=== PATIENT | female | born 1985 | race Caucasian/White ===

== ENCOUNTER 2016-06-04 18:02 | Emergency (ER) | payer SELFPAY ==
[~2016-06-04] VITALS: Ht 175.3 cm; Wt 61.5 kg
[2016-06-04 18:04] VITALS: BP 163/104; PULSE 118; RESP 15; TEMP 99.4; O2SAT 98
--- NOTE | 2016-06-04 18:37 | PD ---
HPI . Urinary symptoms Chief Complaint: Complaint Time Seen by Provider: 18:23 Travel History International Travel<30 days: No Contact w/Intl Traveler<30days: No Traveled to known affect area: No History of Present Illness HPI Patient presents with about a 2 day history of dysuria, frequency, urgency. She developed vomiting today. She said some subjective fevers. She states that her symptoms have been getting progressively worse. She states that AZO has provided no relief. She was seen at an urgent care facility earlier today and given Zofran minimal relief of her nausea. She has not noted any exacerbating symptoms. [facility] Past Medical History ?: Not LMP: 05/31/16 Social History Tobacco Use: No Allergies-Medications (Allergen,Severity, Reaction): Coded Allergies: No Known Allergies (Unverified , 06/04/16) Reported Meds & Prescriptions Reported Meds & Active Scripts Active No Active Prescriptions or Reported Medications Review of Systems Except as stated in HPI: all other systems reviewed are Neg General / Constitutional: Positive: Fever, Chills Gastrointestinal: Positive: Nausea, Vomiting Genitourinary: Positive: Urgency, Frequency, Dysuria, Flank Pain Physical Exam Narrative GENERAL: Awake and alert and in no acute distress. Oral temperature is 99.4. SKIN: Warm and dry. HEAD: Atraumatic. Normocephalic. EYES: Pupils equal and round. Extraocular movements are intact. ENT: No nasal bleeding or discharge. Mucous membranes pink and moist. NECK: Trachea midline. Neck is supple. CARDIOVASCULAR: Rapid rate, regular rhythm. RESPIRATORY: No accessory muscle use. Lungs are clear with full air movement throughout. GASTROINTESTINAL: Abdomen soft, non-tender, nondistended. Abdomen is soft and nontender throughout. She does have some right CVA tenderness. MUSCULOSKELETAL: No obvious deformities. No edema. NEUROLOGICAL: Awake and alert. No obvious cranial nerve deficits. Motor grossly within normal limits. Normal speech. PSYCHIATRIC: Appropriate mood and affect; insight and judgment normal. Data Data Last Documented VS Vital Signs Date Time Temp Pulse Resp B/P Pulse Ox O2 Delivery O2 Flow Rate FiO2 06/04/16 18:04 99.4 118 15 163/104 98 Orders Complete Blood Count With Diff (06/04/16 18:30) Basic Metabolic Panel (Bmp) (06/04/16 18:30) Urinalysis - C+S If Indicated (06/04/16 18:30) Ceftriaxone Inj (Rocephin Inj) (06/04/16 18:30) Sodium Chlor 0.9% 1000 Ml Inj (Ns 1000 M (06/04/16 18:30) Ed Urine Pregnancytest Poc (06/04/16 18:30) Ct Abd/Pel W/O Iv Contrast (06/04/16 18:30) Morphine Inj (Morphine Inj) (06/04/16 18:30) Prochlorperazine Inj (Compazine Inj) (06/04/16 18:30) Diphenhydramine Inj (Benadryl Inj) (06/04/16 18:30) Urine Culture (06/04/16 18:50) Labs Laboratory Tests Test 06/04/16 18:50 White Blood Count 10.5 TH/MM3 Red Blood Count 3.95 MIL/MM3 Hemoglobin 13.4 GM/DL Hematocrit 39.8 % Mean Corpuscular Volume 100.8 FL Mean Corpuscular Hemoglobin 33.9 PG Mean Corpuscular Hemoglobin 33.6 % Concent Red Cell Distribution Width 12.3 % Platelet Count 261 TH/MM3 Mean Platelet Volume 7.7 FL Neutrophils (%) (Auto) 88.8 % Lymphocytes (%) (Auto) 6.0 % Monocytes (%) (Auto) 4.3 % Eosinophils (%) (Auto) 0.1 % Basophils (%) (Auto) 0.8 % Neutrophils # (Auto) 9.3 TH/MM3 Lymphocytes # (Auto) 0.6 TH/MM3 Monocytes # (Auto) 0.4 TH/MM3 Eosinophils # (Auto) 0.0 TH/MM3 Basophils # (Auto) 0.1 TH/MM3 CBC Comment DIFF FINAL Differential Comment Urine Color DARK-YELLOW Urine Turbidity HAZY Urine pH 6.0 Urine Specific [place] 1.028 Urine Protein 300 mg/dL Urine Glucose (UA) NEG mg/dL Urine Ketones 150 mg/dL Urine Occult Blood MOD Urine Nitrite POS Urine Bilirubin NEG Urine Urobilinogen 2.0 MG/DL Urine Leukocyte Esterase SMALL Urine RBC 19 /hpf Urine WBC 37 /hpf Urine Squamous Epithelial 2 /hpf Cells Urine Mucus FEW /lpf Microscopic Urinalysis Comment CULTURE INDICATED Sodium Level 134 MEQ/L Potassium Level 3.6 MEQ/L Chloride Level 95 MEQ/L Carbon Dioxide Level 25.0 MEQ/L Anion Gap 14 MEQ/L Blood Urea Nitrogen 9 MG/DL Creatinine 0.65 MG/DL Estimat Glomerular Filtration 106 ML/MIN Rate Random Glucose 91 MG/DL Calcium Level 9.1 MG/DL [facility] Medical Decision Making Medical Screen Exam Complete: Yes Emergency Medical Condition: Yes Differential Diagnosis Differential diagnosis of flank pain includes but is not limited to kidney stone , pyelonephritis, musculoskeletal pain, PE Narrative Course Patient presents with urinary tract symptoms, nausea and vomiting and subjective fever. She will be evaluated for possible pyelonephritis. CBC & BMP Diagram 06/04/16 18:50 UA shows positive nitrite, positive leukocyte esterase, [address] CONCLUSION: 1. No acute findings. Specifically no renal calculi or evidence for obstructive uropathy. Gallbladder sludge present. Diagnosis Primary Impression: Vomiting Qualified Code: R11.2 - Non-intractable vomiting with nausea, unspecified vomiting type Additional Impression: Urinary tract infection Qualified Code: N30.00 - Acute cystitis without hematuria Patient Instructions: Acute Nausea and Vomiting (DC), General Instructions, Urinary Tract Infection in Women (DC) Med/Other Pt SpecificInfo: Prescription(s) given Scripts Ondansetron Odt (Zofran Odt)8 Mg Tab8 Mg SL Q8H PRN (NAUSEA OR VOMITING) #10 TAB Ref 0 Prov:Yasmin Rodríguez MD 06/04/16 Sulfamethoxazole-Trimethoprim (Bactrim DS)800-160 Mg Tab1 Tab PO BID #14 TAB Ref 0 Prov:Yasmin Rodríguez MD 06/04/16 Disposition: 01 DISCHARGE HOME Condition: Stable Yasmin Rodríguez MD Jun 04, 2016 18:37
[2016-06-04] MEDS: SODIUM CHLOR 0.9% 1000 ML INJ 1,000 ML IV ONE (19:09)
[2016-06-04] MEDS: MORPHINE SULFATE 4 MG/ML INJ IV PUSH ONE (19:10)
[2016-06-04] MEDS: cefTRIAXone INJ 1,000 MG in SODIUM CHLORIDE 0.9% INJ 100 ML IV ONE (19:11)
[2016-06-04] MEDS: PROCHLORPERAZINE INJ 10 MG/2 ML VIAL IV PUSH ONE (19:11)
[2016-06-04 19:13] LABS: AUTOMATED NEUTROPHIL # 9.3 TH/MM3 (1.8-7.7); BASOPHIL # 0.1 TH/MM3 (0-0.2); BASOPHIL % 0.8 % (0.0-2.0); EOSINOPHIL % 0.1 % (0.0-4.0); HEMATOCRIT 39.8 % (35.0-46.0); HEMO FLAGS DIFF FINAL; LYMPHOCYTE # 0.6 TH/MM3 (1.0-4.8); MEAN CELL VOLUME 100.8 FL (80.0-100.0); MEAN CORPUSCULAR HEMOGLOBIN 33.9 PG (27.0-34.0); MEAN CORPUSCULAR HGB CONC 33.6 % (32.0-36.0); MONO % 4.3 % (0.0-8.0); NEUT % 88.8 % (16.0-70.0); PLATELET COUNT 261 TH/MM3 (150-450); RED BLOOD COUNT 3.95 MIL/MM3 (4.00-5.30); RED CELL DISTRIBUTION WIDTH 12.3 % (11.6-17.2); WHITE BLOOD COUNT 10.5 TH/MM3 (4.0-11.0)
[2016-06-04] MEDS: diphenhydrAMINE HCL 50 MG/ML VIAL IV PUSH ONE (19:14)
[2016-06-04 19:23] LABS: BLOOD, URINE MOD (NEG); COMMENT (UR) CULTURE INDICATED; CULTURE IF INDICATED CULTURE INDICATED; GLUCOSE,URINE NEG (NEG); KETONE, URINE 150 mg/dL (NEG); MUCUS URINE FEW /lpf (OCC); SQUAMOUS EPITHELIAL CELL URINE 2 /hpf (0-5); URINE COLOR DARK-YELLOW (YELLW/STRAW)
[2016-06-04 19:30] LABS: NITRITE,URINE POS (NEG)
[2016-06-04 19:40] LABS: POTASSIUM 3.6 MEQ/L (3.5-5.1)
--- NOTE | 2016-06-04 20:12 | RADRPT ---
EXAM DATE/TIME: 06/04/2016 19:37 [facility] COMPARISON: No previous studies available for comparison. INDICATIONS : Flank pain with known kidney infection; rule out renal calculi. ORAL CONTRAST: No oral contrast ingested. RADIATION DOSE: 4.80 CTDIvol (mGy) MEDICAL HISTORY : None SURGICAL HISTORY : None. ENCOUNTER: Initial ACUITY: 1 day PAIN SCALE: 7/10 LOCATION: Bilateral flank TECHNIQUE: Volumetric scanning of the abdomen and pelvis was performed. Using automated exposure control and ad justment of the mA and/or kV according to patient size, radiation dose was kept as low as reasonably achievable to obtain optimal diagnostic quality images. FINDINGS: Lung bases are clear. Fatty liver. There is also a 3.4 x 1.6 cm low attenuation lesion left lobe of l iver. Differential diagnosis includes hemangioma or cyst. Spleen, adrenals, kidneys and pancreas unre markable. Gallbladder sludge present. Appendix is normal. Mild constipation. No bowel obstruction. No free air or free fluid. No acute bony abnormality. CONCLUSION: 1. No acute findings. Specifically no renal calculi or evidence for obstructive uropathy. Gallbladder sludge present. Leonardo Miner MD on June 04, 2016 at 20:05 Board Certified Radiologist. This report was verified electronically.
[2016-06-04] MEDS ORDERED: BACT800T5 PO (20:18)
[2016-06-04] MEDS ORDERED: ZOFR8TAB4 SL (20:18)
== END 2016-06-04 21:08 | disposition home or self-care (01) ==
LOC: NEPD 18:02
DX: R11.2 Nausea with vomiting, unspecified (principal); N30.00 Acute cystitis without hematuria; R11.10 Vomiting, unspecified
CPT/HCPCS: 74176; 80048; 81001; 84703; 85025; 87077; 87086; 87186; 96365; 96375; 99284; J0696; J0780; J1200; J2270; J7030

== ENCOUNTER 2017-04-03 13:05 | Observation (INO) | payer SELFPAY ==
[~2017-04-03] VITALS: Ht 175.3 cm; Wt 63.6 kg
[~2017-04-03 13:05] MED LIST: BACT800T5 PO; ZOFR8TAB4 SL
[2017-04-03 13:06] VITALS: BP 150/85; PULSE 147; RESP 20; TEMP 99; O2SAT 96
[2017-04-03] MEDS ORDERED: IOHEXOL 350 MG/ML 10 ML VIAL (for RAD DIAG) IVCONTRAST ONE (13:06)
[2017-04-03] MEDS ORDERED: SODIUM CHLOR 0.9% 1000 ML INJ 1,000 ML IV SCH (14:23)
[2017-04-03] MEDS ORDERED: ONDANSETRON HCL 4 MG/2 ML VIAL IVP ONE (14:30)
[2017-04-03] MEDS ORDERED: KETOROLAC TROMETHAMINE 30 MG/ML (IVP) VIAL IVP ONE (14:30)
[2017-04-03 14:35] VITALS: BP 155/98; PULSE 110; RESP 19; O2SAT 98
[2017-04-03 14:35] LABS: AUTOMATED NEUTROPHIL # 6.9 TH/MM3 (1.8-7.7); BASOPHIL # 0.1 TH/MM3 (0-0.2); BASOPHIL % 1.5 % (0.0-2.0); EOSINOPHIL % 0.2 % (0.0-4.0); HEMATOCRIT 42.2 % (35.0-46.0); HEMOGLOBIN 14.8 GM/DL (11.6-15.3); LYMPHOCYTE # 0.7 TH/MM3 (1.0-4.8); MEAN CELL VOLUME 100.3 FL (80.0-100.0); MEAN CORPUSCULAR HEMOGLOBIN 35.1 PG (27.0-34.0); MEAN PLATELET VOLUME 7.9 FL (7.0-11.0); MONO % 4.1 % (0.0-8.0); MONOCYTE # 0.3 TH/MM3 (0-0.9); NEUT % 85.2 % (16.0-70.0); PLATELET COUNT 160 TH/MM3 (150-450); RED BLOOD COUNT 4.21 MIL/MM3 (4.00-5.30); WHITE BLOOD COUNT 8.1 TH/MM3 (4.0-11.0)
[2017-04-03] MEDS: SODIUM CHLORIDE 0.9% FLUSH 10 ML FLUSH IV FLUSH PRN ×2 (14:42→15:55)
[2017-04-03 14:57] LABS: ALBUMIN 4.7 GM/DL (3.4-5.0); ALT (GPT) 99 U/L (10-53); AST (GOT) 270 U/L (15-37); BICARBONATE 19.6 MEQ/L (21.0-32.0); BLOOD UREA NITROGEN 8 MG/DL (7-18); CALCIUM 8.8 MG/DL (8.5-10.1); CHLORIDE 96 MEQ/L (98-107); GLOMERULAR FILTRATION RATE 115 ML/MIN (>89); GLUCOSE,RANDOM 91 MG/DL (74-106); SODIUM (NA) 134 MEQ/L (136-145)
[2017-04-03 14:59] LABS: ALKALINE PHOSPHATASE 92 U/L (45-117); TOTAL BILIRUBIN ADULT 1.3 MG/DL (0.2-1.0); TOTAL PROTEIN 9.4 GM/DL (6.4-8.2)
--- NOTE | 2017-04-03 15:00 | PD ---
HPI Chief Complaint: GI Complaint Time Seen by Provider: 14:22 Travel History International Travel<30 days: No Contact w/Intl Traveler<30days: No Traveled to known affect area: No History of Present Illness HPI 32-year-old female presents to the emergency Department with complaint of nausea and vomiting 2 days. Also reports generalized abdominal pain; cannot specify a specific area where her pain is. Denies fever, diarrhea. Denies vaginal discharge, dysuria, hematuria, hematemesis. Denies history of abdominal surgeries. Her fianc was vomiting on Sunday and Sunday. Her last menstrual period February 26. Rates pain 5/10. Describes as burning. Has not taken any medications to alleviate her symptoms. Has tried drinking water with continued vomiting. No known aggravating or relieving factors. Report occasional alcohol use. Denies illicit ir IV drug use. No known allergies. No primary care provider. Denies significant past medical history. Has no other medical complaints. No other modifying factors or associated signs and symptoms. PFSH Past Medical History Diminished Hearing: No Genitourinary: Yes (UTI KIDNEY INFECTION) ?: Unknown LMP: 02/26/2017 Past Surgical History Surgical History: No Previous Surgery Social History Alcohol Use: Yes (OCCASSIONAL) Tobacco Use: No Substance Use: No Allergies-Medications (Allergen,Severity, Reaction): Coded Allergies: No Known Allergies (Unverified Allergy, Unknown, 04/03/17) Reported Meds & Prescriptions Reported Meds & Active Scripts Active No Active Prescriptions or Reported Medications Review of Systems Except as stated in HPI: all other systems reviewed are Neg Physical Exam Narrative GENERAL: Well-nourished, well-developed female patient, in no acute distress; afebrile SKIN: Warm and dry. HEAD: Atraumatic. Normocephalic. EYES: Pupils equal and round. No scleral icterus. No injection or drainage. ENT: Mucosa pink and moist. Airway patent. NECK: Trachea midline. CARDIOVASCULAR: Regular rate and rhythm. No murmur appreciated. RESPIRATORY: No accessory muscle use. Clear to auscultation. Breath sounds equal bilaterally. GASTROINTESTINAL: Abdomen soft, tenderness on palpation to all quadrants ( cannot specify location of pain), nondistended. Hepatic and splenic margins not palpable. Bowel sounds are active 4 quadrants. Nonrigid. No rebound tenderness. No guarding. BACK: No CVA tenderness. MUSCULOSKELETAL: No obvious deformities. No clubbing. No cyanosis. No edema. NEUROLOGICAL: Awake and alert. Oriented 3. No obvious cranial nerve deficits. Motor grossly within normal limits. Normal speech. PSYCHIATRIC: Appropriate mood and affect; insight and judgment normal. Data Data Last Documented VS Vital Signs Date Time Temp Pulse Resp B/P (MAP) Pulse Ox O2 Delivery O2 Flow Rate FiO2 04/03/17 15:55 18 04/03/17 14:35 110 155/98 (117) 98 Room Air 04/03/17 13:06 99.0 Orders Orders Complete Blood Count With Diff (04/03/17 13:23) Comprehensive Metabolic Panel (04/03/17 13:23) Urinalysis - C+S If Indicated (04/03/17 13:23) Ed Urine Pregnancytest Poc (04/03/17 13:23) Lipase (04/03/17 13:23) Iv Access Insert/Monitor (04/03/17 14:23) Ondansetron Inj (Zofran Inj) (04/03/17 14:30) Sodium Chlor 0.9% 1000 Ml Inj (Ns 1000 M (04/03/17 14:23) Sodium Chloride 0.9% Flush (Ns Flush) (04/03/17 14:30) Ketorolac Inj (Toradol Inj) (04/03/17 14:30) Ct Abd/Pel W Iv Contrast(Rout) (04/03/17 15:01) Sodium Chlor 0.9% 1000 Ml Inj (Ns 1000 M (04/03/17 15:30) Morphine Inj (Morphine Inj) (04/03/17 15:30) Iohexol 350 Inj (Omnipaque 350 Inj) (04/03/17 13:06) Place In Observation (04/03/17 ) Vital Signs (Adult) Q4H (04/03/17 16:39) Activity Oob With Assistance (04/03/17 16:39) Large Animal Husbandry Technician / Telemetry .CONTINUOUS (04/03/17 16:39) Diet Clear Liquid (04/03/17 Dinner) Sodium Chlor 0.9% 1000 Ml Inj (Ns 1000 M (04/03/17 16:39) Sodium Chloride 0.9% Flush (Ns Flush) (04/03/17 16:45) Sodium Chloride 0.9% Flush (Ns Flush) (04/03/17 21:00) Ondansetron Inj (Zofran Inj) (04/03/17 16:45) Comprehensive Metabolic Panel (04/04/17 06:00) Complete Blood Count With Diff (04/04/17 06:00) Lipase (04/04/17 06:00) Case Management Consult (04/03/17 16:39) Naloxone Inj (Narcan Inj) (04/03/17 16:45) Ketorolac Inj (Toradol Inj) (04/03/17 16:45) Labs Laboratory Tests Test 04/03/17 14:05 White Blood Count 8.1 TH/MM3 Red Blood Count 4.21 MIL/MM3 Hemoglobin 14.8 GM/DL Hematocrit 42.2 % Mean Corpuscular Volume 100.3 FL Mean Corpuscular Hemoglobin 35.1 PG Mean Corpuscular Hemoglobin Concent 35.0 % Red Cell Distribution Width 13.0 % Platelet Count 160 TH/MM3 Mean Platelet Volume 7.9 FL Neutrophils (%) (Auto) 85.2 % Lymphocytes (%) (Auto) 9.0 % Monocytes (%) (Auto) 4.1 % Eosinophils (%) (Auto) 0.2 % Basophils (%) (Auto) 1.5 % Neutrophils # (Auto) 6.9 TH/MM3 Lymphocytes # (Auto) 0.7 TH/MM3 Monocytes # (Auto) 0.3 TH/MM3 Eosinophils # (Auto) 0.0 TH/MM3 Basophils # (Auto) 0.1 TH/MM3 CBC Comment DIFF FINAL Differential Comment Blood Urea Nitrogen 8 MG/DL Creatinine 0.60 MG/DL Random Glucose 91 MG/DL Total Protein 9.4 GM/DL Albumin 4.7 GM/DL Calcium Level 8.8 MG/DL Alkaline Phosphatase 92 U/L Aspartate Amino Transf (AST/SGOT) 270 U/L Alanine Aminotransferase (ALT/SGPT) 99 U/L Total Bilirubin 1.3 MG/DL Sodium Level 134 MEQ/L Potassium Level 3.6 MEQ/L Chloride Level 96 MEQ/L Carbon Dioxide Level 19.6 MEQ/L Anion Gap 18 MEQ/L Estimat Glomerular Filtration Rate 115 ML/MIN Lipase 1120 U/L MDM Medical Decision Making Medical Screen Exam Complete: Yes Emergency Medical Condition: Yes Medical Record Reviewed: Yes Differential Diagnosis Gastric enteritis, gastritis, , appendicitis, colitis Narrative Course 32-year-old female with nausea, vomiting, abdominal pain 2 days. Denies fevers. Patient is afebrile and nontoxic-appearing. Her rate is elevated in the ER. Patient placed in cardiac A monitor. CBC, CMP, lipase, urinalysis, UPT , normal saline bolus, Toradol, Zofran ordered. UPT negative. CT abdomen/ pelvis ordered. 1505: CBC unremarkable. Lipase 1120. AST 270. ALT 99. Second normal saline bolus ordered. Morphine ordered. Patient to be admitted. 1615: CT abdomen/pelvis concludes: Abdomen/Pelvis CT 04/03/17 1501 Signed Impressions: Service Date/Time: Monday, April 03, 2017 15:35 - CONCLUSION: Mildly enlarged liver with severe diffuse fatty infiltration. Fadi Palomares MD Call placed to PAUL Meredith, for patient admission. 1642: Report given to Dr. Vega for patient admission. Physician Communication Physician Communication PAUL Meredith Diagnosis Primary Impression: Pancreatitis Qualified Codes: K85.90 - Acute pancreatitis without necrosis or infection, unspecified Additional Impression: Hepatomegaly Admitting Information Admitting Physician Requests: Admit Scripts No Active Prescriptions or Reported Meds Darlene Rhoades Apr 03, 2017 15:00
[2017-04-03] MEDS ORDERED: SODIUM CHLOR 0.9% 1000 ML INJ 1,000 ML IV ONE (15:30)
[2017-04-03] MEDS ORDERED: MORPHINE SULFATE 4 MG/ML INJ IV PUSH ONE (15:30)
--- NOTE | 2017-04-03 15:52 | RADRPT ---
EXAM DATE/TIME: 04/03/2017 15:35 [facility] COMPARISON: No previous studies available for comparison. INDICATIONS : Diffuse upper abdomen pain with vomiting. IV CONTRAST: 100 cc Omnipaque 350 (iohexol) IV ORAL CONTRAST: No oral contrast ingested. RADIATION DOSE: 6.64 CTDIvol (mGy) MEDICAL HISTORY : None SURGICAL HISTORY : None. ENCOUNTER: Initial ACUITY: 2 days PAIN SCALE: 7/10 LOCATION: Bilateral upper quadrant TECHNIQUE: Volumetric scanning of the abdomen and pelvis was performed. Using automated exposure control and ad justment of the mA and/or kV according to patient size, radiation dose was kept as low as reasonably achievable to obtain optimal diagnostic quality images. DICOM format image data is available electro nically for review and comparison. FINDINGS: LOWER LUNGS: The visualized lower lungs are clear. LIVER: The liver is mildly enlarged and demonstrates severe diffuse fatty infiltration. No focal mass is not ed. There is no dilation of the biliary tree. No calcified gallstones. SPLEEN: Normal size without lesion. PANCREAS: Within normal limits. KIDNEYS: Normal in size and shape. There is no mass, stone or hydronephrosis. ADRENAL GLANDS: Within normal limits. VASCULAR: There is no aortic aneurysm. BOWEL/MESENTERY: The stomach, small bowel, and colon demonstrate no acute abnormality. There is no free intraperitone al air or fluid. ABDOMINAL WALL: Within normal limits. RETROPERITONEUM: There is no lymphadenopathy. BLADDER: No wall thickening or mass. REPRODUCTIVE: Within normal limits. INGUINAL: There is no lymphadenopathy or hernia. MUSCULOSKELETAL: Within normal limits for patient age. CONCLUSION: Mildly enlarged liver with severe diffuse fatty infiltration. Fadi Palomares MD on April 03, 2017 at 15:46 Board Certified Radiologist. This report was verified electronically.
[2017-04-03] MEDS ORDERED: NALOXONE HCL 0.4 MG/ML AMP IV PUSH PRN (16:45)
[2017-04-03] MEDS ORDERED: SODIUM CHLORIDE 0.9% FLUSH 10 ML FLUSH IV FLUSH PRN (16:45)
[2017-04-03 17:30] VITALS: BP 147/83; PULSE 100; RESP 18; O2SAT 96
[2017-04-03 17:30] LABS: BACTERIA, URINE RARE /hpf; BILIRUBIN, URINE NEG (NEG); BLOOD, URINE TRACE (NEG); GLUCOSE,URINE NEG (NEG); KETONE, URINE 150 mg/dL (NEG); MUCUS URINE FEW /lpf (OCC); NITRITE,URINE NEG (NEG); SQUAMOUS EPITHELIAL CELL URINE 6 /hpf (0-5); URINE COLOR YELLOW (YELLW/STRAW); URINE LEUKOCYTE ESTERASE NEG (NEG)
[2017-04-03] MEDS: SODIUM CHLOR 0.9% 1000 ML INJ 1,000 ML IV SCH (17:45)
[2017-04-03 18:27] VITALS: BP 142/77; PULSE 97; RESP 18; TEMP 99.3; O2SAT 97
[2017-04-03] MEDS: SODIUM CHLORIDE 0.9% FLUSH 10 ML FLUSH IV FLUSH SCH (20:02)
[2017-04-03 20:03] VITALS: PULSE 101
[2017-04-03 20:27] VITALS: BP 128/87; PULSE 96; RESP 18; TEMP 98.7; O2SAT 96
--- NOTE | 2017-04-03 21:11 | HHI.HP ---
[facility] Primary Care Physician No Primary Care Physician Admission Diagnosis pancreatitis, hepatomegaly Diagnoses: Travel History International Travel<30 Days: No Contact w/Intl Traveler <30 Da: No Traveled to Known Affected Are: No History of Present Illness 32-year-old female with no significant past medical history presents to the emergency department for evaluation of nausea/vomiting. The patient reports she has been having episodes of emesis every 5-10 minutes since Sunday. She states she has been unable to keep down anything. She complains of mid abdominal pain that does not radiate. She denies any fever/chills. Denies chest pain or shortness of breath. Review of Systems Except as stated in HPI: all other systems reviewed are Neg Past Family Social History Past Medical History History of frequent UTIs Past Surgical History cystoscopy Reported Medications Reported Meds & Active Scripts Active No Active Prescriptions or Reported Medications Allergies: Coded Allergies: No Known Allergies (Unverified Allergy, Unknown, 04/03/17) Family History Negative for CAD/DM Social History Drinks approximately 4-6 "strong" drinks 2-3 times weekly. Denies tobacco and illicit drugs. Physical Exam Vital Signs Vital Signs Date Time Temp Pulse Resp B/P (MAP) Pulse Ox O2 Delivery O2 Flow Rate FiO2 04/03/17 20:27 98.7 96 18 128/87 (101) 96 04/03/17 18:27 99.3 97 18 142/77 (98) 97 04/03/17 18:23 04/03/17 17:45 20 04/03/17 17:30 100 18 147/83 (104) 96 Room Air 04/03/17 15:55 18 04/03/17 14:35 110 19 155/98 (117) 98 Room Air 04/03/17 13:06 99.0 147 20 150/85 (106) 96 Room Air Physical Exam GENERAL: female lying in bed SKIN: No rashes, ecchymoses or lesions. Cool and dry. HEAD: Atraumatic. Normocephalic. No temporal or scalp tenderness. EYES: Pupils equal round and reactive. Extraocular motions intact. No scleral icterus. No injection or drainage. ENT: Nose without bleeding, purulent drainage or septal hematoma. Throat without erythema, tonsillar hypertrophy or exudate. Uvula midline. Airway patent. NECK: Trachea midline. No JVD or lymphadenopathy. Supple, nontender, no meningeal signs. CARDIOVASCULAR: Regular rate and rhythm without murmurs, gallops, or rubs. RESPIRATORY: Clear to auscultation. Breath sounds equal bilaterally. No wheezes , rales, or rhonchi. GASTROINTESTINAL: Abdomen soft, diffusely tender to palpation throughout, nondistended. No hepato-splenomegaly, or palpable masses. No guarding. MUSCULOSKELETAL: Extremities without clubbing, cyanosis, or edema. No joint tenderness, effusion, or edema noted. No calf tenderness. NEUROLOGICAL: Awake and alert. Cranial nerves II through XII intact. Motor and sensory grossly within normal limits. Normal speech. Laboratory Laboratory Tests Test 04/03/17 14:05 04/03/17 16:06 White Blood Count 8.1 Red Blood Count 4.21 Hemoglobin 14.8 Hematocrit 42.2 Mean Corpuscular Volume 100.3 Mean Corpuscular Hemoglobin 35.1 Mean Corpuscular Hemoglobin Concent 35.0 Red Cell Distribution Width 13.0 Platelet Count 160 Mean Platelet Volume 7.9 Neutrophils (%) (Auto) 85.2 Lymphocytes (%) (Auto) 9.0 Monocytes (%) (Auto) 4.1 Eosinophils (%) (Auto) 0.2 Basophils (%) (Auto) 1.5 Neutrophils # (Auto) 6.9 Lymphocytes # (Auto) 0.7 Monocytes # (Auto) 0.3 Eosinophils # (Auto) 0.0 Basophils # (Auto) 0.1 CBC Comment DIFF FINAL Differential Comment Blood Urea Nitrogen 8 Creatinine 0.60 Random Glucose 91 Total Protein 9.4 Albumin 4.7 Calcium Level 8.8 Alkaline Phosphatase 92 Aspartate Amino Transf (AST/SGOT) 270 Alanine Aminotransferase (ALT/SGPT) 99 Total Bilirubin 1.3 Sodium Level 134 Potassium Level 3.6 Chloride Level 96 Carbon Dioxide Level 19.6 Anion Gap 18 Estimat Glomerular Filtration Rate 115 Lipase 1120 Urine Color YELLOW Urine Turbidity CLEAR Urine pH 6.0 Urine Specific [place] GREATER THAN 1.050 Urine Protein 300 Urine Glucose (UA) NEG Urine Ketones 150 Urine Occult Blood TRACE Urine Nitrite NEG Urine Bilirubin NEG Urine Urobilinogen LESS THAN 2.0 Urine Leukocyte Esterase NEG Urine RBC 1 Urine WBC 1 Urine Squamous Epithelial Cells 6 Urine Bacteria RARE Urine Mucus FEW Microscopic Urinalysis Comment CULT NOT INDICATED Result Diagram: 04/03/17 1405 04/03/17 1405 Caprini VTE Risk Assessment Caprini VTE Risk Assessment: No/Low Risk (score <= 1) Caprini Risk Assessment Model Point Value = 1 Point Value = 2 Point Value = 3 Point Value = 5 Age 41-60 Minor surgery BMI > 25 kg/m2 Swollen legs Varicose veins or History of unexplained or recurrent spontaneous Oral contraceptives or hormone replacement Sepsis (< 1 month) Serious lung disease, including pneumonia (< 1 month) Abnormal pulmonary function Acute myocardial infarction Congestive heart failure (< 1 month) History of inflammatory bowel disease Medical patient at bed rest Age 61-74 Arthroscopic surgery Major open surgery (> 45 min) Laparoscopic surgery (> 45 min) Malignancy Confined to bed (> 72 hours) Immobilizing plaster cast Central venous access Age >= 75 History of VTE Family history of VTE Factor V Leiden Prothrombin [id number] Lupus anticoagulant Anticardiolipin antibodies Elevated serum homocysteine Heparin-induced thrombocytopenia Other congenital or acquired thrombophilia Stroke (< 1 month) Elective arthroplasty Hip, pelvis, or leg fracture Acute spinal cord injury (< 1 month) Prophylaxis Regimen Total Risk Factor Score Risk Level Prophylaxis Regimen 0-1 Low Early ambulation 2 Moderate Order ONE of the following: *Sequential Compression Device (SCD) *Heparin 5000 units SQ BID 3-4 Higher Order ONE of the following medications: *Heparin 5000 units SQ TID *Enoxaparin/Lovenox 40 mg SQ daily (WT < 150 kg, CrCl > 30 mL/min) *Enoxaparin/Lovenox 30 mg SQ daily (WT < 150 kg, CrCl > 10-29 mL/min) *Enoxaparin/Lovenox 30 mg SQ BID (WT < 150 kg, CrCl > 30 mL/min) AND/OR *Sequential Compression Device (SCD) 5 or more Highest Order ONE of the following medications: *Heparin 5000 units SQ TID (Preferred with Epidurals) *Enoxaparin/Lovenox 40 mg SQ daily (WT < 150 kg, CrCl > 30 mL/min) *Enoxaparin/Lovenox 30 mg SQ daily (WT < 150 kg, CrCl > 10-29 mL/min) *Enoxaparin/Lovenox 30 mg SQ BID (WT < 150 kg, CrCl > 30 mL/min) AND *Sequential Compression Device (SCD) Assessment and Plan Assessment and Plan Assessment/plan: 1. Pancreatitis Lipase 1120 CT of the abdomen significant for enlarged, fatty liver without pancreatic changes IV fluid hydration Clear liquid diet as tolerated Toradol for pain Zofran Anticipate discharge to home tomorrow if patient tolerating by mouth 2. Transaminitis Likely secondary to alcohol abuse Monitor 3. Alcohol abuse Cessation counseling provided [facility] protocol 4. History of frequent UTIs Status post cystoscopy UA within normal limits FEN Clear liquid diet MS at 100 cc/hour Electrolytes: Monitor and replete when necessary Ambulation Rosa Lawrence MD Apr 03, 2017 21:11
[2017-04-03] MEDS ORDERED: LORazepam 2 MG/ML VIAL IV PUSH PRN ×4 (21:15)
[2017-04-03] MEDS ORDERED: FLUMAZENIL 0.5 MG/5 ML VIAL IV PUSH PRN (21:15)
[2017-04-03] MEDS ORDERED: LORazepam 1 MG TAB PO PRN (21:15)
[2017-04-03] MEDS ORDERED: LORazepam 2 MG TAB PO PRN (21:15)
[2017-04-03] MEDS: ONDANSETRON HCL 4 MG/2 ML VIAL IVP PRN (21:39)
[2017-04-03] MEDS: KETOROLAC TROMETHAMINE 30 MG/ML (IVP) VIAL IV PUSH PRN (21:39)
[2017-04-04] VITALS (10 sets, daily range): BP systolic 114–139; BP diastolic 82–89; PULSE 72–95; RESP 16–21; TEMP 98.4–100; O2SAT 97–99
[2017-04-04] MEDS: SODIUM CHLOR 0.9% 1000 ML INJ 1,000 ML IV SCH ×3 (01:47→23:18)
[2017-04-04 06:41] LABS: AUTOMATED NEUTROPHIL # 4.7 TH/MM3 (1.8-7.7); BASOPHIL # 0.1 TH/MM3 (0-0.2); BASOPHIL % 0.9 % (0.0-2.0); EOSINOPHIL # 0.1 TH/MM3 (0-0.4); EOSINOPHIL % 2.3 % (0.0-4.0); HEMATOCRIT 36.1 % (35.0-46.0); HEMOGLOBIN 12.3 GM/DL (11.6-15.3); LYMPH % 10.8 % (9.0-44.0); LYMPHOCYTE # 0.6 TH/MM3 (1.0-4.8); MEAN CELL VOLUME 100.4 FL (80.0-100.0); MEAN CORPUSCULAR HEMOGLOBIN 34.1 PG (27.0-34.0); MEAN PLATELET VOLUME 8.6 FL (7.0-11.0); MONO % 6.5 % (0.0-8.0); MONOCYTE # 0.4 TH/MM3 (0-0.9); NEUT % 79.5 % (16.0-70.0); PLATELET COUNT 98 TH/MM3 (150-450); RED CELL DISTRIBUTION WIDTH 13.1 % (11.6-17.2); WHITE BLOOD COUNT 5.9 TH/MM3 (4.0-11.0)
[2017-04-04 07:01] LABS: ALBUMIN 3.7 GM/DL (3.4-5.0); AST (GOT) 127 U/L (15-37); BICARBONATE 20.8 MEQ/L (21.0-32.0); BLOOD UREA NITROGEN 4 MG/DL (7-18); CHLORIDE 102 MEQ/L (98-107); CREATININE 0.49 MG/DL (0.50-1.00); GLOMERULAR FILTRATION RATE 145 ML/MIN (>89); GLUCOSE,RANDOM 85 MG/DL (74-106); SODIUM (NA) 137 MEQ/L (136-145)
[2017-04-04 07:08] LABS: ALKALINE PHOSPHATASE 67 U/L (45-117); ALT (GPT) 61 U/L (10-53); TOTAL PROTEIN 7.4 GM/DL (6.4-8.2)
[2017-04-04] MEDS: SODIUM CHLORIDE 0.9% FLUSH 10 ML FLUSH IV FLUSH SCH ×2 (09:33→21:00)
[2017-04-04] MEDS: KETOROLAC TROMETHAMINE 30 MG/ML (IVP) VIAL IV PUSH PRN (09:59)
[2017-04-04] MEDS: ONDANSETRON HCL 4 MG/2 ML VIAL IVP PRN (09:59)
[2017-04-04] MEDS ORDERED: PNEUMOCOCCAL POLYVALENT INJ 25 MCG/0.5 ML SYR IM ONE (10:00)
[2017-04-04] MEDS ORDERED: INFLUENZA VIRUS VACCINE (QUADRIVALENT) 0.5 ML SYR IM ONE (10:00)
--- NOTE | 2017-04-04 10:29 | HHI.PR ---
Subjective Remarks Follow up for pancreatitis. The patient reports feeling better today. Denies any significant abdominal pain currently, but did have epigastric pains with radiation into the right chest earlier today. Last had some dry heaving in the ER last night, but no recent vomiting. She has been able to tolerate some of her liquid tray but requests warm/hot food only. Denies fevers/chills or diarrhea. She really wants to go home today. Objective Vitals Vital Signs Date Time Temp Pulse Resp B/P (MAP) Pulse Ox O2 Delivery O2 Flow Rate FiO2 04/04/17 08:15 99.0 95 20 139/85 (103) 98 04/04/17 04:40 98.4 87 16 137/85 (102) 98 04/04/17 03:56 72 04/04/17 01:44 99.0 84 16 130/82 (98) 99 04/04/17 00:01 84 04/03/17 20:27 98.7 96 18 128/87 (101) 96 04/03/17 20:03 101 04/03/17 18:27 99.3 97 18 142/77 (98) 97 04/03/17 18:23 04/03/17 17:45 20 04/03/17 17:30 100 18 147/83 (104) 96 Room Air 04/03/17 15:55 18 04/03/17 14:35 110 19 155/98 (117) 98 Room Air 04/03/17 13:06 99.0 147 20 150/85 (106) 96 Room Air I/O 04/03/17 04/03/17 04/03/17 04/04/17 04/04/17 04/04/17 07:00 15:00 23:00 07:00 15:00 23:00 Intake Total 2000 ml 480 ml Balance 2000 ml 480 ml Intake Oral 480 ml IV Total 2000 ml # Voids 3 Result Diagram: 04/04/17 0603 04/04/17 0603 Imaging Last Impressions Abdomen/Pelvis CT 04/03/17 1501 Signed Impressions: Service Date/Time: Monday, April 03, 2017 15:35 - CONCLUSION: Mildly enlarged liver with severe diffuse fatty infiltration. Fadi Palomares MD Objective Remarks GENERAL: Well-nourished, well-developed young female patient in [facility]. SKIN: Warm and dry. No rash. HEENT: Normocephalic. Atraumatic.Pupils equal and round. Mucous membranes pink and moist. NECK: Supple. Trachea midline. CARDIOVASCULAR: Regular rate and rhythm. S1, S2 noted. No murmur appreciated. RESPIRATORY: No accessory muscle use. Clear to auscultation. Breath sounds equal bilaterally. GASTROINTESTINAL: Abdomen soft, non-tender, nondistended. Normoactive bowel sounds x4. MUSCULOSKELETAL: No obvious deformities. Extremities without clubbing, cyanosis , or edema. NEUROLOGICAL: Awake and alert. No obvious cranial nerve deficits. Motor grossly within normal limits. Normal speech. PSYCHIATRIC: Appropriate mood and affect; insight and judgment normal. Medications and IVs Current Medications Medications (Trade) Dose Ordered Sig/Donavan Route Start Time Stop Time Status Last Admin Sodium Chloride 1,000 ml @ 100 mls/hr Q10H IV 04/03/17 16:39 04/04/17 01:47 (NS Flush) 2 ml UNSCH PRN IV FLUSH 04/03/17 16:45 (NS Flush) 2 ml BID IV FLUSH 04/03/17 21:00 (Zofran Inj) 4 mg Q6H PRN IVP 04/03/17 16:45 04/04/17 09:59 (Narcan Inj) 0.4 mg UNSCH PRN IV PUSH 04/03/17 16:45 (Toradol Inj) 15 mg Q6H PRN IV PUSH 04/03/17 16:45 04/07/17 16:44 04/04/17 09:59 (Romazicon Inj) 0.2 mg Q1M PRN IV PUSH 04/03/17 21:15 (Ativan) 1 mg Q4H PRN PO 04/03/17 21:15 (Ativan Inj) 1 mg Q4H PRN IV PUSH 04/03/17 21:15 (Ativan) 2 mg Q2H PRN PO 04/03/17 21:15 (Ativan Inj) 2 mg Q2H PRN IV PUSH 04/03/17 21:15 (Ativan Inj) 2 mg Q1H PRN IV PUSH 04/03/17 21:15 (Ativan Inj) 2 mg Q15M PRN IV PUSH 04/03/17 21:15 A/P Assessment and Plan 32-year-old female with no significant past medical history presents to the emergency department for intractable nausea/vomiting. Acute Pancreatitis: Lipase 1120. CT abdomen images reviewed, significant for enlarged, fatty liver without pancreatic changes -Continue IV fluid hydration -Clear liquid diet as tolerated, advance to full liquids -Continue IV Toradol prn pain -Antimetics with IV Zofran prn -Lipase trended up today to 3057, will repeat this afternoon Transaminitis: suspect secondary to alcohol abuse. -LFTs trending down with hydration -Continue to monitor Alcohol abuse: acute, patient admits to binging on alcohol prior to onset of symptoms -Cessation counseling provided -[facility] protocol History of frequent UTIs: Status post cystoscopy -UA within normal limits -outpatient f/up DVT Prophylaxis: teds/SCDs Discharge Planning 1020hrs: Patient really wants to go home today, symptoms improving however lipase trending up. Will repeat labs this afternoon and if downtrending and symptoms continue to improve, will plan to discharge. Mahi Del Angel PA-C Apr 04, 2017 10:29
[2017-04-04] MEDS ORDERED: ONDA4TAB7 SL (15:39)
--- NOTE | 2017-04-04 15:40 | HHI.DCPOC ---
Discharge Care Plan Diagnosis: (1) Pancreatitis (2) Vomiting Goals to Promote Your Health * To prevent worsening of your condition and complications * To maintain your health at the optimal level Directions to Meet Your Goals Take your medications as prescribed Follow your dietary instruction Follow activity as directed Keep your appointments as scheduled Take your immunizations and boosters as scheduled If your symptoms worsen call your PCP, if no PCP go to Urgent Care Center or Emergency Room Smoking is Dangerous to Your Health. Avoid second hand smoke Call the 24-hour hour crisis hotline for domestic abuse at Mahi Del Angel PA-C Apr 04, 2017 3:40 pm
[2017-04-04 16:28] LABS: ALBUMIN 3.9 GM/DL (3.4-5.0); ALT (GPT) 57 U/L (10-53); AST (GOT) 105 U/L (15-37); BLOOD UREA NITROGEN 3 MG/DL (7-18); CALCIUM 8.1 MG/DL (8.5-10.1); CHLORIDE 100 MEQ/L (98-107); CREATININE 0.51 MG/DL (0.50-1.00); GLUCOSE,RANDOM 98 MG/DL (74-106); SODIUM (NA) 134 MEQ/L (136-145)
[2017-04-04 16:31] LABS: ALKALINE PHOSPHATASE 68 U/L (45-117); TOTAL PROTEIN 7.6 GM/DL (6.4-8.2)
[2017-04-04] MEDS ORDERED: POTASSIUM CHLORIDE 20 MEQ CONTROLLED RELEASE TAB PO ONE (17:00)
[2017-04-04] MEDS ORDERED: TEMAZEPAM 15 MG CAP PO PRN (17:15)
[2017-04-05 01:40] VITALS: BP 126/87; PULSE 109; RESP 16; TEMP 100.2; O2SAT 100
[2017-04-05 03:57] VITALS: BP 120/77; PULSE 97; RESP 16; TEMP 99.7; O2SAT 99
[2017-04-05 05:35] LABS: AUTOMATED NEUTROPHIL # 3.9 TH/MM3 (1.8-7.7); BASOPHIL # 0.1 TH/MM3 (0-0.2); EOSINOPHIL # 0.2 TH/MM3 (0-0.4); EOSINOPHIL % 4.7 % (0.0-4.0); HEMOGLOBIN 12.5 GM/DL (11.6-15.3); LYMPH % 13.8 % (9.0-44.0); LYMPHOCYTE # 0.7 TH/MM3 (1.0-4.8); MEAN CELL VOLUME 99.4 FL (80.0-100.0); MEAN CORPUSCULAR HEMOGLOBIN 34.4 PG (27.0-34.0); MEAN CORPUSCULAR HGB CONC 34.6 % (32.0-36.0); MEAN PLATELET VOLUME 8.7 FL (7.0-11.0); MONO % 6.7 % (0.0-8.0); MONOCYTE # 0.4 TH/MM3 (0-0.9); NEUT % 73.8 % (16.0-70.0); PLATELET COUNT 91 TH/MM3 (150-450); RED BLOOD COUNT 3.62 MIL/MM3 (4.00-5.30); WHITE BLOOD COUNT 5.3 TH/MM3 (4.0-11.0)
[2017-04-05 05:36] LABS: ALBUMIN 3.6 GM/DL (3.4-5.0); ALT (GPT) 47 U/L (10-53); AST (GOT) 75 U/L (15-37); BLOOD UREA NITROGEN 2 MG/DL (7-18); CALCIUM 8.4 MG/DL (8.5-10.1); CHLORIDE 102 MEQ/L (98-107); CREATININE 0.36 MG/DL (0.50-1.00); GLUCOSE,RANDOM 90 MG/DL (74-106); MAGNESIUM 1.4 MG/DL (1.5-2.5); SODIUM (NA) 136 MEQ/L (136-145)
[2017-04-05 05:39] LABS: ALKALINE PHOSPHATASE 61 U/L (45-117); TOTAL BILIRUBIN ADULT 0.9 MG/DL (0.2-1.0); TOTAL PROTEIN 7.2 GM/DL (6.4-8.2)
--- NOTE | 2017-04-05 08:39 | HHI.PR ---
Subjective Remarks Follow up for pancreatitis. The patient reports feeling much better today. Denies any abdominal pain, nausea, or vomiting. Documented temperature of 100.2 last night, patient reports her room was very hot for a few hours but this improved after adjusting the air conditioning. She does not feel feverish. Denies any chills. She is tolerating oral intake. She wants to go home. Strongly advised to stop drinking alcohol, patient verbalized understanding. Objective Vitals Vital Signs Date Time Temp Pulse Resp B/P (MAP) Pulse Ox O2 Delivery O2 Flow Rate FiO2 04/05/17 03:57 99.7 97 16 120/77 (91) 99 04/05/17 01:40 100.2 109 16 126/87 (100) 100 04/04/17 20:08 100.0 73 16 114/83 (93) 99 04/04/17 16:21 99.0 83 21 138/84 (102) 97 04/04/17 15:58 73 04/04/17 12:06 99.0 82 18 130/89 (103) 99 04/04/17 11:38 22 04/04/17 10:48 78 I/O 04/04/17 04/04/17 04/04/17 04/05/17 04/05/17 04/05/17 07:00 15:00 23:00 07:00 15:00 23:00 Intake Total 480 ml Balance 480 ml Intake Oral 480 ml # Voids 3 Result Diagram: 04/05/17 0440 04/05/17 0440 Imaging Last Impressions Abdomen/Pelvis CT 04/03/17 1501 Signed Impressions: Service Date/Time: Monday, April 03, 2017 15:35 - CONCLUSION: Mildly enlarged liver with severe diffuse fatty infiltration. Fadi Palomares MD Objective Remarks GENERAL: Well-nourished, well-developed young female patient in [facility]. SKIN: Warm and dry. No rash. HEENT: Normocephalic. Atraumatic.Pupils equal and round. Mucous membranes pink and moist. CARDIOVASCULAR: Regular rate and rhythm. S1, S2 noted. No murmur appreciated. RESPIRATORY: No accessory muscle use. Clear to auscultation. Breath sounds equal bilaterally. GASTROINTESTINAL: Abdomen soft, non-tender, nondistended. Normoactive bowel sounds x4. MUSCULOSKELETAL: No obvious deformities. Extremities without clubbing, cyanosis , or edema. NEUROLOGICAL: Awake and alert. No obvious cranial nerve deficits. Motor grossly within normal limits. Normal speech. PSYCHIATRIC: Appropriate mood and affect; insight and judgment normal. Medications and IVs Current Medications Medications (Trade) Dose Ordered Sig/Donavan Route Start Time Stop Time Status Last Admin Sodium Chloride 1,000 ml @ 100 mls/hr Q10H IV 04/03/17 16:39 04/04/17 23:18 (NS Flush) 2 ml UNSCH PRN IV FLUSH 04/03/17 16:45 (NS Flush) 2 ml BID IV FLUSH 04/03/17 21:00 (Zofran Inj) 4 mg Q6H PRN IVP 04/03/17 16:45 04/04/17 09:59 (Narcan Inj) 0.4 mg UNSCH PRN IV PUSH 04/03/17 16:45 (Toradol Inj) 15 mg Q6H PRN IV PUSH 04/03/17 16:45 04/07/17 16:44 04/04/17 09:59 (Romazicon Inj) 0.2 mg Q1M PRN IV PUSH 04/03/17 21:15 (Ativan) 1 mg Q4H PRN PO 04/03/17 21:15 (Ativan Inj) 1 mg Q4H PRN IV PUSH 04/03/17 21:15 (Ativan) 2 mg Q2H PRN PO 04/03/17 21:15 (Ativan Inj) 2 mg Q2H PRN IV PUSH 04/03/17 21:15 (Ativan Inj) 2 mg Q1H PRN IV PUSH 04/03/17 21:15 (Ativan Inj) 2 mg Q15M PRN IV PUSH 04/03/17 21:15 (Restoril) 15 mg HS PRN PO 04/04/17 17:15 04/04/17 21:24 Magnesium Sulfate/ Dextrose 100 ml @ 100 mls/hr Q1H IV 04/05/17 08:30 04/05/17 10:29 UNV A/P Assessment and Plan 32-year-old female with no significant past medical history presents to the emergency department for intractable nausea/vomiting. Acute Pancreatitis: Lipase 1120. CT abdomen images reviewed, significant for enlarged, fatty liver without pancreatic changes -Continue IV fluid hydration -Clear liquid diet as tolerated, advanced to soft diet -Continue IV Toradol prn pain -Antiemetics with IV Zofran prn -Lipase trended 112- --> 3057 --> 5592 --> 4678 -Symptoms completely resolved and patient tolerating oral intake, stable for discharge -Advised to avoid all alcohol, patient verbalized understanding Transaminitis: suspect secondary to alcohol abuse. -LFTs trending down with hydration -Continue to monitor, much improved Alcohol abuse: acute, patient admits to binging on alcohol prior to onset of symptoms -Cessation counseling provided -[facility] History of frequent UTIs: Status post cystoscopy -UA within normal limits -outpatient f/up Hypomagnesemia/Hypokalemia: suspect secondary to recent vomiting -replaced with po KCl and IV Mag sulfate x2G DVT Prophylaxis: teds/SCDs Discharge Planning Discharge patient to home Condition on discharge: Improved Regular/Soft Diet as tolerated Ad Nanci activity Rx written: zofran prn Follow-up with primary care physician within 1 week Mahi Del Angel PA-C Apr 05, 2017 08:39
[2017-04-05 08:42] LABS: BANDS 10 % (0-6); LYMPHOCYTES 14 % (9-44); MONOCYTES 3 % (0-8); NEUTROPHIL # MANUAL DIFF 4.1 TH/MM3 (1.8-7.7); POLYS (SEG NEUTROPHILS) 68 % (16-70)
[2017-04-05] MEDS: SODIUM CHLORIDE 0.9% FLUSH 10 ML FLUSH IV FLUSH SCH (09:00)
[2017-04-05] MEDS ORDERED: POTASSIUM CHLORIDE 20 MEQ CONTROLLED RELEASE TAB PO ONE (09:00)
[2017-04-05 09:12] VITALS: TEMP 99
[2017-04-05] MEDS: MAGNESIUM SULFATE 1 GM PREMIX 100 ML IV SCH ×2 (09:33→11:26)
[2017-04-05] MEDS: SODIUM CHLOR 0.9% 1000 ML INJ 1,000 ML IV SCH (09:33)
[2017-04-05 10:14] VITALS: BP 122/86; PULSE 98; RESP 18; TEMP 99.1; O2SAT 96
[2017-04-05 13:00] VITALS: BP 126/91; PULSE 94; RESP 17; TEMP 98.5; O2SAT 98
== END 2017-04-05 18:31 | disposition home or self-care (01) ==
LOC: NEPD 13:05 → NEDA 16:45 → NEPFCDU 18:19
PROVIDERS: ADMIT Hospitalist; ATTEND Hospitalist
DX: K85.90 Acute pancreatitis without necrosis or infection, unspecified (principal); R74.0 Nonspecific elevation of levels of transaminase and lactic acid dehydrogenase [LDH]; R16.0 Hepatomegaly, not elsewhere classified; E83.42 Hypomagnesemia; E87.6 Hypokalemia; F10.10 Alcohol abuse, uncomplicated; K76.0 Fatty (change of) liver, not elsewhere classified; Z87.440 Personal history of urinary (tract) infections; Z23 Encounter for immunization
CPT/HCPCS: 74177; 80053; 81001; 83690; 83735; 84703; 85007; 85025; 85027; 90686; 90732; 96361; 96365; 96366; 96375; 96376; 99285; G0378; J1885; J2270; J2405; J3475; J7030; Q9967; Q2038